=== PATIENT | female | born 1980 | race African-American/Black ===

== ENCOUNTER 2018-01-17 08:17 | Day surgery (SDC) | payer OTHER ==
[2018-01-14 12:04] VITALS: BMI 32.2
[2018-01-17] MEDS ORDERED: HEPARIN NA (PORCINE) 5,000 UNITS/ML 1ML VIAL ONE (08:50)
[2018-01-17] MEDS ORDERED: LIDOCAINE HCL 2% (20ML MULTI-DOSE VIAL) NR ONE (08:50)
[2018-01-17] MEDS ORDERED: ROPIVACAINE HCL 0.5% 30ML VIAL ONE (08:59)
[2018-01-17] MEDS ORDERED: DEXAMETHASONE SOD PHOSPHATE/PF 10 MG/ML SDV ONE (08:59)
[2018-01-17] MEDS ORDERED: MIDAZOLAM HCL 2 MG/2 ML SINGLE DOSE VIAL ONE ×6 (09:00→11:57)
--- NOTE | 2018-01-17 10:06 | HP ---
History & Physical Update - History History: No Change - Physical Physical: No Change - Assessment Assessment: No Change - Plan Plan: No Change
[2018-01-17] MEDS ORDERED: CLINDAMYCIN 600MG PREMIX IVPB 600 MG/50 ML BAG IVPB ONE (10:11)
[2018-01-17] MEDS ORDERED: CLINDAMYCIN PHOSPHATE 900 MG/6 ML VIAL IVPB ONE (10:35)
[2018-01-17] MEDS ORDERED: LIDOCAINE HCL 1%, 10 MG/ML (50 mL VIAL) IJ ONE (10:39)
[2018-01-17] MEDS ORDERED: PROPOFOL 20 ML ONE ×5 (10:57→11:35)
[2018-01-17] MEDS ORDERED: oxyCODONE HCL 5 MG TABLET PO PRN ×3 (12:11→13:43)
[2018-01-17] MEDS ORDERED: ONDANSETRON 4 MG/2 ML VIAL IVPUSH PRN (12:11)
[2018-01-17] MEDS ORDERED: PROMETHAZINE HCL 25 MG/1 ML VIAL IVPUSH PRN (12:11)
--- NOTE | 2018-01-17 12:11 | OP ---
Operative Note - Note: Operative Date: 01/17/18 Pre-Operative Diagnosis: ESRD on HD Operation: Left arm AVF creation with basilic vein transposition Implants: none Post-Operative Diagnosis: Same as Pre-op Surgeon: Charlee Begum Controls Design Engineer: Ngoc Luna Anesthesiologist/DIALS SUPERVISOR: Mango Cisneros Anesthesia: MAC Specimens Removed: none Estimated Blood Loss (mls): 75 Operative Report Dictated: Yes
--- NOTE | 2018-01-17 13:10 | OP ---
DATE OF OPERATION: 01/17/2018 PREOPERATIVE DIAGNOSIS: Renal failure. POSTOPERATIVE DIAGNOSIS: Renal failure. PROCEDURE: Creation of arteriovenous fistula with mobilization of the basilic vein and left upper arm arteriovenous fistula. SURGEON: Brian Potts MD TEMPLATE CLERK: Ngoc ANESTHESIA: Brachial block. The patient had a brachial block done earlier and then substituted with some local for the axillary block. DESCRIPTION OF THE PROCEDURE: The patient was taken to the operating room. Intravenous antibiotics were given and the arm was prepped and draped. A longitudinal incision was made from the axilla to the elbow. The vein was harvested which was eventually and was found to be of decent size. On the lower end it was found to be smaller but the higher end it was found to be of good size. But the other system was deeper which was a little bigger but it had multiple branches and so it was decided not to use that. So the vein was divided at the elbow level with the 2 branches and the 2 branches were connected to form a wide opening and the vein was then injected with heparinized solution and found to be 6 on the top and 3.5 to 4 on the bottom and it was brought through the subcutaneous tunnel in a C-tunnel and it was then anastomosed to the brachial artery. Care was taken to avoid injury to the median nerve or to the musculocutaneous nerve. Following this the subcutaneous tissues and skin were closed. Flow was established and the patient had good fill and went to the recovery room in stable condition. Nancy [id number]
[2018-01-17] MEDS ORDERED: ACETAMINOPHEN 325 MG TABLET (FP) PO PRN ×2 (13:41→13:43)
[2018-01-17 17:49] VITALS: BP 107/70; PULSE 68
== END 2018-01-17 17:15 | disposition home or self-care (01) ==
LOC: JASU-SURG 08:17
PROVIDERS: ATTEND Surgery Vascular Surgery
PROC: 03180ZF Bypass Left Brachial Artery to Lower Arm Vein, Open Approach (ICD-10-PCS; principal; 2018-01-17 10:00)
DX: N18.6 End stage renal disease (principal)
CPT/HCPCS: 36415; 84132; 84703; 94760; J1644

== ENCOUNTER 2021-11-20 23:37 | Inpatient (IN) | payer OTHER ==
[2021-11-20 23:46] VITALS: BMI 29.2
[2021-11-21] MEDS ORDERED: ALBUTEROL SO4 2.5/IPRATROPIUM 0.5 INH SOL 3 ML VIAL.NEB. NEB ONE ×3 (00:05→08:32)
[2021-11-21] MEDS ORDERED: NITROGLYCERIN SUBLINGUAL 1/150 0.4 MG TAB SL ONE ×2 (00:08→00:27)
[2021-11-21] MEDS ORDERED: FUROSEMIDE 40 MG/4 ML INJECTABLE VIAL IVPUSH ONE (00:09)
[2021-11-21] MEDS ORDERED: NITROGLYCERIN SUBLINGUAL 1/150 0.4 MG TAB ONE (00:12)
[2021-11-21] MEDS ORDERED: NITROGLYCERIN 2% OINTMENT - 1GM PACKET TD ONE ×2 (00:26→00:28)
[2021-11-21] MEDS ORDERED: DEXAMETHASONE SOD PHOSPHATE 10 MG/1 ML VIAL ONE (00:26)
[2021-11-21] MEDS ORDERED: DEXAMETHASONE SOD PHOSPHATE 10 MG/1 ML VIAL IVPUSH ONE (00:28)
[2021-11-21] MEDS ORDERED: FUROSEMIDE 40 MG/4 ML INJECTABLE VIAL ONE (00:34)
[2021-11-21 00:39] LABS: BASO % 0.9 % (0-2.0); EOS % 4.1 % (0-4.5); HEMATOCRIT 28.2 % (32.4-45.2); HEMOGLOBIN 9.1 GM/dL (10.7-15.3); LYMPH % 9.4 % (8-40); MCH 29.2 pg (25.7-33.7); MCHC 32.3 g/dl (32.0-36.0); MEAN CELL VOLUME 90.2 fl (80-96); MEAN PLT VOLUME 7.8 fl (7.5-11.1); MONO % 9.7 % (3.8-10.2); NEUT % 75.9 % (42.8-82.8); PLATELET COUNT 232 10^3/uL (134-434); RBC 3.13 M/mm3 (3.60-5.2); WHITE BLOOD COUNT 13.1 K/mm3 (4.0-10.0)
[2021-11-21] MEDS: ALBUTEROL SO4 2.5/IPRATROPIUM 0.5 INH SOL 3 ML VIAL.NEB. NEB SCH ×2 (00:51→00:57)
[2021-11-21 00:52] LABS: INR 0.96 (0.83-1.09)
[2021-11-21 01:01] LABS: CHLORIDE 106 mmol/L (98-107); SODIUM 145 mmol/L (136-145)
[2021-11-21 01:03] LABS: ALBUMIN 3.3 g/dl (3.4-5.0); ANION GAP 9 MMOL/L (8-16); BLOOD UREA NITROGEN 44.7 mg/dL (7-18); CALCIUM 8.2 mg/dL (8.5-10.1); CO2 30 mmol/L (21-32); GLUCOSE,RANDOM 109 mg/dL (74-106)
[2021-11-21 01:05] LABS: MAGNESIUM 2.5 mg/dL (1.8-2.4)
[2021-11-21 01:06] LABS: PHOSPHOROUS 5.2 mg/dL (2.5-4.9); SGOT/AST 83 U/L (15-37); SGPT/ALT 52 U/L (13-61)
[2021-11-21 01:08] LABS: BILIRUBIN,TOTAL 0.5 mg/dL (0.2-1)
[2021-11-21 01:09] LABS: ALK PHOS 207 U/L (45-117)
[2021-11-21] MEDS: methylPREDNISolone NA SUCC 40 MG/1 ML VIAL IVPUSH SCH ×2 (04:05→09:57)
[2021-11-21] MEDS ORDERED: methylPREDNISolone NA SUCC 40 MG/1 ML VIAL ONE ×2 (04:35→09:36)
[2021-11-21] MEDS ORDERED: hydrALAZINE HCL 50 MG TABLET (FP) ONE ×2 (05:20→14:40)
[2021-11-21] MEDS: hydrALAZINE HCL 50 MG TABLET (FP) PO SCH ×3 (05:24→22:02)
[2021-11-21 07:48] LABS: HEMATOCRIT 27.7 % (32.4-45.2); HEMOGLOBIN 8.9 GM/dL (10.7-15.3); MCH 29.2 pg (25.7-33.7); MCHC 32.1 g/dl (32.0-36.0); MEAN PLT VOLUME 7.7 fl (7.5-11.1); PLATELET COUNT 224 10^3/uL (134-434); RBC 3.04 M/mm3 (3.60-5.2); RDW 15.8 % (11.6-15.6); WHITE BLOOD COUNT 10.6 K/mm3 (4.0-10.0)
[2021-11-21] MEDS ORDERED: ALBUTEROL SO4 2.5/IPRATROPIUM 0.5 INH SOL 3 ML VIAL.NEB. NEB SCH (08:00)
[2021-11-21 08:15] LABS: CHLORIDE 104 mmol/L (98-107); SODIUM 141 mmol/L (136-145)
[2021-11-21 08:21] LABS: ANION GAP 9 MMOL/L (8-16); BLOOD UREA NITROGEN 47.8 mg/dL (7-18); CALCIUM 8.4 mg/dL (8.5-10.1); CO2 28 mmol/L (21-32); GLUCOSE,RANDOM 113 mg/dL (74-106); MAGNESIUM 2.5 mg/dL (1.8-2.4)
[2021-11-21 08:23] LABS: SGPT/ALT 46 U/L (13-61)
[2021-11-21 08:24] LABS: CHOLESTEROL 119 mg/dL (50-200); PHOSPHOROUS 5.4 mg/dL (2.5-4.9); SGOT/AST 60 U/L (15-37); TRIGLYCERIDES 78 mg/dL (0-150)
[2021-11-21 08:25] LABS: BILIRUBIN,TOTAL 0.5 mg/dL (0.2-1); LDL CHOLESTEROL (ONLY SJRH) 54 mg/dL (5-100); TOT PROT 5.8 g/dl (6.4-8.2)
[2021-11-21 08:26] LABS: ALK PHOS 189 U/L (45-117)
[2021-11-21 08:27] LABS: HDL CHOLESTEROL 44 mg/dL (40-60)
[2021-11-21 08:34] LABS: CREATININE 10.4 mg/dL (0.55-1.3)
[2021-11-21 08:54] LABS: ANISOCYTOSIS 1+; MACROCYTOSIS 0; TARGET CELLS 1+
[2021-11-21] MEDS ORDERED: AZITHROMYCIN IVPB 500 MG/250 ML BAG IVPB ONE (09:36)
[2021-11-21] MEDS ORDERED: HEPARIN NA (PORCINE) 5,000 UNITS/ML 1ML VIAL ONE (09:36)
[2021-11-21] MEDS: CHLORTHALIDONE 25 MG TABLET PO SCH (09:57)
[2021-11-21] MEDS: HEPARIN NA (PORCINE) 5,000 UNITS/ML 1ML VIAL SQ SCH ×2 (09:57→22:03)
[2021-11-21] MEDS: LABETALOL HCL 200 MG, LABETALOL HCL 100 MG PO SCH ×2 (09:58→22:02)
[2021-11-21] MEDS: BUDESONIDE/FORMETEROL FUMARATE 80/4.5 mcg INHALER IH SCH ×2 (09:58→22:01)
[2021-11-21] MEDS ORDERED: AZITHROMYCIN IVPB 500 MG in DEXTROSE 5%-WATER - 250 ML IVPB SCH (10:00)
[2021-11-21] MEDS ORDERED: LEVALBUTEROL HCL 0.63 MG/3 ML VIAL.NEB. IH PRN (10:04)
[2021-11-21] MEDS ORDERED: SODIUM ZIRCONIUM CYCLOSILICATE (LOKELMA) 5 GM PACKET PO SCH (15:15)
[2021-11-21] MEDS ORDERED: SODIUM ZIRCONIUM CYCLOSILICATE (LOKELMA) 5 GM PACKET ONE (15:39)
[2021-11-21] MEDS ORDERED: SODIUM CHLORIDE 250 ML IV PRN (17:25)
[2021-11-21] MEDS: HEPARIN NA (PORCINE) 5,000 UNITS/ML 1ML VIAL IVPUSH SCH ×3 (17:30→19:30)
[2021-11-21] MEDS ORDERED: HEPARIN NA (PORCINE) 5,000 UNITS/ML 1ML VIAL IVPUSH ONE (17:30)
[2021-11-21 18:04] LABS: CHLORIDE 104 mmol/L (98-107); SODIUM 142 mmol/L (136-145)
[2021-11-21 18:05] LABS: ANION GAP 10 MMOL/L (8-16); CALCIUM 8.5 mg/dL (8.5-10.1); CO2 29 mmol/L (21-32)
[2021-11-21 18:06] LABS: BLOOD UREA NITROGEN 59.9 mg/dL (7-18); GLUCOSE,RANDOM 125 mg/dL (74-106)
[2021-11-21 18:25] LABS: CREATININE 11.4 mg/dL (0.55-1.3)
[2021-11-21] MEDS ORDERED: LABETALOL HCL 200 MG TABLET (FP) ONE (21:46)
[2021-11-21] MEDS ORDERED: LABETALOL HCL 100 MG TABLET (FP) ONE (21:46)
[2021-11-21] MEDS: OLANZapine 10 MG TABLET PO SCH (22:02)
[2021-11-21] MEDS: SERTRALINE HCL 50 MG TABLET (FP) PO SCH (22:02)
[2021-11-21] MEDS: MONTELUKAST NA 10 MG TABLET PO SCH (22:02)
[2021-11-22] MEDS: hydrALAZINE HCL 50 MG TABLET (FP) PO SCH ×3 (05:47→21:57)
[2021-11-22 06:49] LABS: BASO % 0.6 % (0-2.0); EOS % 1.1 % (0-4.5); HEMATOCRIT 25.5 % (32.4-45.2); HEMOGLOBIN 8.6 GM/dL (10.7-15.3); LYMPH % 17.7 % (8-40); MCH 30.6 pg (25.7-33.7); MCHC 33.7 g/dl (32.0-36.0); MEAN CELL VOLUME 90.6 fl (80-96); MEAN PLT VOLUME 7.9 fl (7.5-11.1); MONO % 10.8 % (3.8-10.2); NEUT % 69.8 % (42.8-82.8); PLATELET COUNT 220 10^3/uL (134-434); RBC 2.81 M/mm3 (3.60-5.2); RDW 15.7 % (11.6-15.6); WHITE BLOOD COUNT 10.3 K/mm3 (4.0-10.0)
[2021-11-22 07:08] LABS: CALCIUM 8.1 mg/dL (8.5-10.1)
[2021-11-22 07:09] LABS: ALBUMIN 2.8 g/dl (3.4-5.0)
[2021-11-22 07:13] LABS: BILIRUBIN,TOTAL 0.4 mg/dL (0.2-1); TOT PROT 5.1 g/dl (6.4-8.2)
[2021-11-22] MEDS ORDERED: LABETALOL HCL 100 MG TABLET (FP) ONE ×2 (08:34→21:11)
[2021-11-22] MEDS ORDERED: LABETALOL HCL 200 MG TABLET (FP) ONE ×2 (08:34→21:11)
[2021-11-22] MEDS: BUDESONIDE/FORMETEROL FUMARATE 80/4.5 mcg INHALER IH SCH ×2 (10:37→21:58)
[2021-11-22] MEDS: LABETALOL HCL 200 MG, LABETALOL HCL 100 MG PO SCH ×2 (10:38→21:58)
[2021-11-22] MEDS: CHLORTHALIDONE 25 MG TABLET PO SCH (10:38)
[2021-11-22] MEDS: HEPARIN NA (PORCINE) 5,000 UNITS/ML 1ML VIAL SQ SCH ×2 (10:38→21:57)
[2021-11-22] MEDS: SERTRALINE HCL 50 MG TABLET (FP) PO SCH (21:57)
[2021-11-22] MEDS: OLANZapine 10 MG TABLET PO SCH (21:58)
[2021-11-22] MEDS: MONTELUKAST NA 10 MG TABLET PO SCH (21:58)
[2021-11-23] MEDS: hydrALAZINE HCL 50 MG TABLET (FP) PO SCH ×2 (06:16→14:45)
[2021-11-23] MEDS ORDERED: HEPARIN NA (PORCINE) 5,000 UNITS/ML 1ML VIAL IVPUSH ONE (07:00)
[2021-11-23] MEDS ORDERED: SODIUM CHLORIDE 250 ML IV PRN (07:00)
[2021-11-23] MEDS ORDERED: EPOETIN ALFA-EPBX 3,000 UNIT, EPOETIN ALFA-EPBX 2,000 UNIT SQ ONE (07:30)
[2021-11-23] MEDS: HEPARIN NA (PORCINE) 5,000 UNITS/ML 1ML VIAL IVPUSH SCH ×3 (08:33→10:30)
[2021-11-23 09:07] LABS: HEMATOCRIT 25.6 % (32.4-45.2); HEMOGLOBIN 8.4 GM/dL (10.7-15.3); MCH 29.3 pg (25.7-33.7); MCHC 32.7 g/dl (32.0-36.0); MEAN CELL VOLUME 89.6 fl (80-96); MEAN PLT VOLUME 7.7 fl (7.5-11.1); PLATELET COUNT 223 10^3/uL (134-434); RBC 2.86 M/mm3 (3.60-5.2); WHITE BLOOD COUNT 8.5 K/mm3 (4.0-10.0)
[2021-11-23 09:32] LABS: CHLORIDE 108 mmol/L (98-107); SODIUM 146 mmol/L (136-145)
[2021-11-23 09:36] LABS: CALCIUM 7.8 mg/dL (8.5-10.1)
[2021-11-23 09:37] LABS: ALBUMIN 2.3 g/dl (3.4-5.0); ANION GAP 6 MMOL/L (8-16); CO2 32 mmol/L (21-32); GLUCOSE,RANDOM 119 mg/dL (74-106)
[2021-11-23 09:40] LABS: SGOT/AST 19 U/L (15-37); SGPT/ALT 22 U/L (13-61)
[2021-11-23 09:41] LABS: BILIRUBIN,TOTAL 0.4 mg/dL (0.2-1); TOT PROT 3.9 g/dl (6.4-8.2)
[2021-11-23 09:43] LABS: ALK PHOS 111 U/L (45-117); BLOOD UREA NITROGEN 60.6 mg/dL (7-18); CREATININE 9.5 mg/dL (0.55-1.3)
[2021-11-23] MEDS ORDERED: EPOETIN ALFA-EPBX 4,000 UNIT/ML VIAL SQ ONE (11:03)
[2021-11-23] MEDS ORDERED: LABETALOL HCL 100 MG TABLET (FP) ONE (11:34)
[2021-11-23] MEDS ORDERED: LABETALOL HCL 200 MG TABLET (FP) ONE (11:34)
[2021-11-23 11:48] VITALS: TEMP 98.2
[2021-11-23] MEDS: LABETALOL HCL 200 MG, LABETALOL HCL 100 MG PO SCH (11:48)
[2021-11-23] MEDS: CHLORTHALIDONE 25 MG TABLET PO SCH (11:50)
[2021-11-23] MEDS: BUDESONIDE/FORMETEROL FUMARATE 80/4.5 mcg INHALER IH SCH (11:50)
[2021-11-23] MEDS: HEPARIN NA (PORCINE) 5,000 UNITS/ML 1ML VIAL SQ SCH (11:50)
[2021-11-23 14:46] VITALS: BP 148/90; PULSE 78
== END 2021-11-23 18:44 | disposition home or self-care (01) | DRG 189 ==
LOC: JER 23:37 → JERBED 11-21 01:41 → J4W 11-21 16:40
PROVIDERS: ADMIT Internal Medicine
PROC: 5A1D70Z Performance of Urinary Filtration, Intermittent, Less than 6 Hours Per Day (ICD-10-PCS; principal; 2021-11-21)
PROC: 5A1D70Z Performance of Urinary Filtration, Intermittent, Less than 6 Hours Per Day (ICD-10-PCS; 2021-11-23)
DX: J81.0 Acute pulmonary edema (principal); J96.01 Acute respiratory failure with hypoxia; N18.6 End stage renal disease; J45.31 Mild persistent asthma with (acute) exacerbation; I24.8 Other forms of acute ischemic heart disease; I12.0 Hypertensive chronic kidney disease with stage 5 chronic kidney disease or end stage renal disease; M32.14 Glomerular disease in systemic lupus erythematosus; M32.9 Systemic lupus erythematosus, unspecified; E87.5 Hyperkalemia; F41.9 Anxiety disorder, unspecified; Z99.2 Dependence on renal dialysis; D63.1 Anemia in chronic kidney disease
CPT/HCPCS: 36415; 71045-TC-FY; 80048; 80053; 80061; 83735; 84100; 84443; 84484; 85025; 85027; 85610; 85730; 87340; 93005; 93010; 93306-TC; 99285-25; C9803-CS; J1100; J1644; Q5106; U0003; U0005

== ENCOUNTER 2022-12-05 04:00 | Day surgery (SDC) | payer OTHER ==
[2022-12-01 08:49] VITALS: BMI 29.0
[2022-12-05] MEDS ORDERED: DEXMEDETOMIDINE HCL 200 MCG/2 ML IVPB ONE (06:49)
[2022-12-05] MEDS ORDERED: PROPOFOL 20 ML ONE (06:59)
[2022-12-05] MEDS ORDERED: POVIDONE-IODINE OINTMENT 10% - 28.4 GM TUBE ONE (10:32)
[2022-12-05] MEDS ORDERED: HEPARIN NA (PORCINE) 5,000 UNITS/ML 1ML VIAL ONE (10:32)
[2022-12-05] MEDS ORDERED: LIDOCAINE HCL 1%, 10 MG/ML (10ML VIAL) MDV ONE (10:32)
[2022-12-05] MEDS ORDERED: PROPOFOL 60 ML ONE (10:51)
[2022-12-05] MEDS ORDERED: MIDAZOLAM HCL 2 MG/2 ML SINGLE DOSE VIAL ONE (11:37)
[2022-12-05] MEDS ORDERED: VANCOMYCIN 1 GM in NS (PRE-DOCKED) 1,000 MG/250 ML (RESTRICTED TO ID ONLY) IVPB ONE (11:49)
[2022-12-05] MEDS ORDERED: ONDANSETRON 4 MG/2 ML VIAL ONE (11:50)
[2022-12-05] MEDS ORDERED: LIDOCAINE HCL 1%, 10 MG/ML (20ML VIAL) NR ONE (11:51)
[2022-12-05] MEDS ORDERED: VANCOMYCIN 1,000 MG VIAL (RESTRICTED TO ID ONLY) ONE (11:57)
[2022-12-05] MEDS ORDERED: POVIDONE-IODINE OINTMENT 10% - 28.4 GM TUBE TP ONE (12:13)
[2022-12-05] MEDS ORDERED: oxyCODONE HCL 5 MG TABLET PO PRN (12:27)
[2022-12-05] MEDS ORDERED: ONDANSETRON 4 MG/2 ML VIAL IVPUSH PRN (12:27)
[2022-12-05] MEDS ORDERED: LACTATED RINGERS SOLUTION 1,000 ML IV SCH (12:30)
[2022-12-05 14:16] VITALS: TEMP 97.8
[2022-12-05 14:28] VITALS: RESP 18
[2022-12-05 15:29] VITALS: BP 130/68; PULSE 74
== END 2022-12-05 14:55 | disposition home or self-care (01) ==
LOC: JASU-SURG 04:00
PROVIDERS: ATTEND Surgery Vascular Surgery
PROC: 0HXCXZZ Transfer Left Upper Arm Skin, External Approach (ICD-10-PCS; principal; 2022-12-05 10:00)
DX: T82.898A Other specified complication of vascular prosthetic devices, implants and grafts, initial encounter (principal); I12.0 Hypertensive chronic kidney disease with stage 5 chronic kidney disease or end stage renal disease; N18.6 End stage renal disease
CPT/HCPCS: 36415; 81025; 84132; 94760; J1644